=== PATIENT | female | born 1960 | race Caucasian/White ===

== ENCOUNTER → 2016-06-08 | Outpatient (CLI) | payer MEDICARE, BC ==
[2016-06-08 13:23] LABS: BUN/CREATININE RATIO 22 (0-10)
== END ==
LOC: HH 12:47
PROVIDERS: Internal Medicine
DX: C20 Malignant neoplasm of rectum (principal); E46 Unspecified protein-calorie malnutrition; R11.2 Nausea with vomiting, unspecified; T81.31XA Disruption of external operation (surgical) wound, not elsewhere classified, initial encounter
CPT/HCPCS: 80048; 83735